=== PATIENT | female | born 1985 | race Caucasian/White ===

== ENCOUNTER 2017-02-25 13:29 | Emergency (ER) | payer OTHER ==
[~2017-02-25] VITALS: Ht 157.5 cm; Wt 51.0 kg
[~2017-02-25 13:29] MED LIST: PREN1TAB17 PO
[2017-02-25 13:33] VITALS: Ht 157.5 cm; Wt 51.0 kg
[2017-02-25] MEDS ORDERED: DIPHTH/TET/ACEL PERTUSS (ADULT) 0.5 ML VIAL IM* ONE (15:00)
[2017-02-25] MEDS ORDERED: LIDOCAINE 1%/EPI 30 ML INJ INJ STA ×2 (15:33→15:36)
[2017-02-25] MEDS ORDERED: LIDOCAINE 2%/EPI (MDV) 20ML INJ INJ ONE (16:00)
--- NOTE | 2017-02-25 16:00 | ERD ---
ER Documentation Chief Complaint Date/Time DATE: 02/25/17 TIME: 15:50 Chief Complaint LEFT EYEBROW LAC,S/P TRIPPED AND FALL HPI This is a 31 year old female presenting to the emergency department with a superficial laceration on her left eyebrow from a ground level fall that occurred an hour prior to being seen, patient tripped and fell on the ground. Patient denies any LOC, nausea, vomiting, lethargy or neuro deficits. Denies vision changes. Patient does not remember last tetanus. ROS All systems reviewed and are negative except as per history of present illness. Medications Home Meds Reported Medications Vit-Iron Fumarate-FA ( Tablet) 1 Each Tablet, 1 EACH PO DAILY 12/09/13 Allergies Allergies: Coded Allergies: No Known Allergies (Verified Allergy, Unknown, 02/25/17) PMhx/Soc Medical and Surgical Hx: pt denies Medical Hx, pt denies Surgical Hx Hx Alcohol Use: No Hx Substance Use: No Hx Tobacco Use: No Smoking Status: Never smoker Physical Exam Vitals Vital Signs Date Time Temp Pulse Resp B/P Pulse Ox O2 Delivery O2 Flow Rate FiO2 02/25/17 13:33 99.1 70 18 134/70 100 Physical Exam GENERAL: well-developed/well-nourished, in no apparent distress, non-toxic appearing HENT: NC/AT, bilateral tympanic membrane is normal with good cone of light, nares patent, oropharynx clear without exudates EYES: Conjunctiva normal, PERRLA, EOMI, no nystagmus noted NECK: Supple, no lymphadenopathy PULM: CTA bilaterally, no rales, rhonchi, or wheezing heard CV: Normal S1S2, RRR, good capillary refill GI: Soft, non-distended, normal bowel sounds, non-tender BACK: No midline tenderness, no masses, No CVAT EXT: No clubbing, cyanosis, or edema NEURO: Alert and orientated to person, place, and time. CN II-IIX intact. Gait and coordination were normal. Hand key account coordinator strength were equal and within normal limits SKIN: Intact, normal turgor PSYCH: Normal mood and mentation, patient denied SI GENERAL: well-developed/well -nourished, in no apparent distress, non-toxic appearing HENT: NC/AT, bilateral tympanic membrane is normal with good cone of light, nares patent, oropharynx clear without exudates EYES: Conjunctiva normal, PERRLA, EOMI, no nystagmus noted NECK: Supple, no lymphadenopathy PULM: CTA bilaterally, no rales, rhonchi, or wheezing heard CV: Normal S1S2, RRR, good capillary refill GI: Soft, non-distended, normal bowel sounds, non-tender BACK: No midline tenderness, no masses, No CVAT EXT: No clubbing, cyanosis, or edema NEURO: Alert and orientated to person, place, and time. CN II-IIX intact. Gait and coordination were normal. Hand key account coordinator strength were equal and within normal limits SKIN: 2cm superficial laceration to the left eyebrow PSYCH: Normal mood and mentation, patient denied SI Results 24 hrs Current Medications Medications (Trade) Dose Ordered Sig/Janki Route PRN Reason Start Time Stop Time Status Last Admin Dose Admin Diphtheria/ Tetanus/Acell Pertussis (Adacel) 0.5 ml ONCE ONCE IM* 02/25/17 15:00 02/25/17 15:01 DC Lidocaine/ Epinephrine (Xylocaine 1%/ Epi) 30 ml ONCE STAT INJ 02/25/17 15:33 02/25/17 15:37 DC Lidocaine/ Epinephrine (Xylocaine 1%/ Epi) 20 ml ONCE STAT INJ 02/25/17 15:36 02/25/17 15:40 DC Lidocaine/ Epinephrine (Xylocaine 2%/ Epi (Mdv) 20 ml) 20 ml ONCE ONCE INJ 02/25/17 16:00 02/25/17 16:01 02/25/17 15:45 Procedures/MDM MDM: 31-year-old Fe patient presents to the ER with a superficial laceration on the eyebrow from a ground-level fall. My clinical suspicion for fracture, nerve/ tendon/arterial injury, FB is low due to physical examination. In the ED copious amount of normal saline fluid was used for irrigation, patient is suitable for sutures however patient declined and wanted glue. I discussed the risks and scarring however patient still refused and wanted Dermabond. Patient was given TDAP. PROCEDURE NOTE: Consent was obtained. Patient was positioned appropriately. Copious amount of normal saline was used for irrigation. Wound was closed with good approximation with dermabond DISPOSITION: hemodynamically stable and neurovascularly intact pre and post treatment. Discussed to return to this facility or primary care physician for wound check. Discussed to return to the ER for any signs of infection or if condition worsens. Patient expressed agreement and understanding of the plan. Departure Diagnosis: Primary Impression: Laceration Condition: Stable Patient Instructions: Laceration, Face (Skin Glue) Referrals: DOCTOR,NOT ON STAFF (PCP) Additional Instructions: Follow up in 2 days in your clinic for wound check. Return to this facility if you are not improving as expected. BK TOWNSEND PA-C Feb 25, 2017 16:00
[2017-02-25 16:02] VITALS: BP 128/69; PULSE 99; RESP 18; TEMP 98.5
== END 2017-02-25 16:03 | disposition home or self-care (01) ==
LOC: FTE 13:29
DX: S01.112A Laceration without foreign body of left eyelid and periocular area, initial encounter (principal); W01.0XXA Fall on same level from slipping, tripping and stumbling without subsequent striking against object, initial encounter; Y92.9 Unspecified place or not applicable
CPT/HCPCS: 12011; Z7610; 90715